=== PATIENT | male | born 1960 | race American Indian/Alaskan Native ===

== ENCOUNTER 2016-06-08 19:24 | Emergency (ER) | payer SELFPAY ==
[2016-06-08 19:44] VITALS: BP 94/64
== END 2016-06-09 02:20 | disposition left against medical advice (07) ==
LOC: ED 19:24
DX: T78.40XA Allergy, unspecified, initial encounter (principal); X58.XXXA Exposure to other specified factors, initial encounter; Z53.21 Procedure and treatment not carried out due to patient leaving prior to being seen by health care provider